=== PATIENT | male | born 1975 | race Caucasian/White ===

== ENCOUNTER 2019-01-14 00:37 | Emergency (ER) | payer SELFPAY, MEDICAID ==
[2019-01-14] MEDS: HYDROCODONE/APAP (5/325) TAB PO (01:15)
[2019-01-14 01:27] LABS: ADD UMIC YES; UR ASCORBIC ACID 40 mg/dL (NEGATIVE); UR BILIRUBIN (Dip) NEGATIVE (NEGATIVE); UR BLOOD (Dip) 2+ mg/dL (NEGATIVE); UR CLARITY CLEAR (CLEAR); UR COLOR YELLOW (YELLOW); UR GLUCOSE (Dip) NEGATIVE (NEGATIVE); UR KETONES (Dip) NEGATIVE (NEGATIVE); UR LEUKOCYTE ESTERASE (Dip) TRACE Leu/ul (NEGATIVE); UR MUCUS FEW /HPF (NONE SEEN); UR NITRITE (Dip) NEGATIVE (NEGATIVE); UR RBC 4 /HPF (0-5); UR SPECIFIC GRAVITY (Dip) 1.025 (1.003-1.030); UR TOTAL PROTEIN (Dip) 1+ mg/dl (NEGATIVE); UR UROBILINOGEN (Dip) NEGATIVE (NEGATIVE); UR WBC 3 /HPF (0-5)
[2019-01-14] MEDS: CEFTRIAXONE 250 MG INJ IM (02:30)
[2019-01-14] MEDS: LIDOCAINE 1% (MPF) 5 ML VIAL INFIL (02:30)
== END 2019-01-14 02:42 | disposition home or self-care (01) ==
LOC: FTE 00:37
DX: N45.1 Epididymitis (principal); F17.210 Nicotine dependence, cigarettes, uncomplicated
CPT/HCPCS: 76870; 81001; 96372; 99285-25

== ENCOUNTER 2019-02-25 04:41 | Emergency (ER) | payer SELFPAY ==
[2019-02-25] MEDS: CEFTRIAXONE 250 MG INJ IM (06:40)
[2019-02-25] MEDS: AZITHROMYCIN 500 MG TAB PO (06:40)
[2019-02-25] MEDS: LIDOCAINE 1% (MPF) 5 ML VIAL INJ (06:40)
== END 2019-02-25 07:47 | disposition home or self-care (01) ==
LOC: FTE 07:47
DX: A64 Unspecified sexually transmitted disease (principal); F17.210 Nicotine dependence, cigarettes, uncomplicated
CPT/HCPCS: 87086; 87591; 96372; 99284-25